=== PATIENT | female | born 1960 | race Caucasian/White ===

== ENCOUNTER 2016-10-26 22:01 | Inpatient (IN) | payer OTHER, BC ==
[~2016-10-26] VITALS: Ht 157.5 cm; Wt 56.7 kg
[~2016-10-26 22:01] MED LIST: ELAVIL10 MG PO; LINZESS145 MCG PO; MINIPRESS1 MG PO; NEURONTIN100 MG PO; NEURONTIN400 MG PO; NEXIUM40 MG PO; STOOL SOFTENER100 MG PO; VITAMIN D32000 UNI1 PO
[2016-10-27 13:10] VITALS: BP 135/75
[2016-10-27 17:52] VITALS: BP 111/66
[2016-10-27 19:42] VITALS: BP 100/66
[2016-10-27 20:10] LABS: HEMATOCRIT 35.6 % (36.0-46.0); MCH 30.1 PG (29.0-34.0); MCHC 33.4 G/DL (30.0-36.0); MCV 90.1 FL (83-99); MEAN PLAT.VOLUME 9.3 uM^3 (9.5-12.4); PLATELET COUNT 233 K/uL (156-360); RBC DIS.WIDTH-CV 12.9 % (11.8-14.6); RBC DIS.WIDTH-SD 42.8 % (39-53); RED BLOOD COUNT 3.95 M/uL (3.80-5.20); WHITE BLOOD COUNT 12.9 K/uL (4.1-10.2)
[2016-10-27 20:32] LABS: ANION GAP 9 MEQ/L (2-14); CHLORIDE 104 MEQ/L (99-109); POTASSIUM 3.6 MEQ/L (3.7-5.4); SAMPLE HEMOLYSIS CHECK 0; SAMPLE ICTERIC CHECK 0; SAMPLE LIPEMIA CHECK 0; SODIUM 141 MEQ/L (136-147)
[2016-10-27 20:37] LABS: GFR ESTIMATE (CALCULATED) > 59 mL/min/; GLUCOSE 212 mg/dL (70-99); UREA NITROGEN (BUN) 8 mg/dL (9-23)
[2016-10-27 23:32] VITALS: BP 112/76
[2016-10-28 04:12] VITALS: BP 100/54
[2016-10-28 06:46] LABS: HEMATOCRIT 32.9 % (36.0-46.0); MCH 29.3 PG (29.0-34.0); MCHC 32.2 G/DL (30.0-36.0); MCV 90.9 FL (83-99); MEAN PLAT.VOLUME 9.4 uM^3 (9.5-12.4); PLATELET COUNT 210 K/uL (156-360); RBC DIS.WIDTH-CV 13.1 % (11.8-14.6); RBC DIS.WIDTH-SD 43.8 % (39-53); RED BLOOD COUNT 3.62 M/uL (3.80-5.20); WHITE BLOOD COUNT 9.1 K/uL (4.1-10.2)
[2016-10-28 07:07] LABS: ANION GAP 8 MEQ/L (2-14); CHLORIDE 98 MEQ/L (99-109); GFR ESTIMATE (CALCULATED) > 59 mL/min/; GLUCOSE 125 mg/dL (70-99); SAMPLE HEMOLYSIS CHECK 0; SAMPLE ICTERIC CHECK 0; SAMPLE LIPEMIA CHECK 0; SODIUM 135 MEQ/L (136-147); UREA NITROGEN (BUN) 7 mg/dL (9-23)
[2016-10-28 07:08] VITALS: BP 110/56
[2016-10-28 11:15] VITALS: BP 95/53
[2016-10-28 14:40] VITALS: BP 90/55
[2016-10-28 19:26] VITALS: BP 90/51
[2016-10-28 23:41] VITALS: BP 92/54
[2016-10-29 00:11] VITALS: BP 86/53
[2016-10-29 00:30] VITALS: BP 90/52
[2016-10-29 02:46] VITALS: BP 92/47
[2016-10-29 03:53] VITALS: BP 91/52
[2016-10-29 07:04] LABS: HEMATOCRIT 28.8 % (36.0-46.0); MCH 30.6 PG (29.0-34.0); MCHC 33.3 G/DL (30.0-36.0); MCV 91.7 FL (83-99); MEAN PLAT.VOLUME 9.7 uM^3 (9.5-12.4); PLATELET COUNT 182 K/uL (156-360); RBC DIS.WIDTH-CV 13.5 % (11.8-14.6); RBC DIS.WIDTH-SD 45.8 % (39-53); RED BLOOD COUNT 3.14 M/uL (3.80-5.20); WHITE BLOOD COUNT 5.2 K/uL (4.1-10.2)
[2016-10-29 07:17] VITALS: BP 86/52
[2016-10-29 07:35] LABS: ANION GAP 4 MEQ/L (2-14); CHLORIDE 104 MEQ/L (99-109); GFR ESTIMATE (CALCULATED) > 59 mL/min/; POTASSIUM 4.3 MEQ/L (3.7-5.4); SAMPLE HEMOLYSIS CHECK 0; SAMPLE ICTERIC CHECK 0; SAMPLE LIPEMIA CHECK 0; SODIUM 141 MEQ/L (136-147); UREA NITROGEN (BUN) 10 mg/dL (9-23)
[2016-10-29 07:36] LABS: GLUCOSE 78 mg/dL (70-99)
[2016-10-29] MEDS ORDERED: TRAMADOL HCL50 MG PO (10:05)
[2016-10-29 11:23] VITALS: BP 100/56
== END 2016-10-29 11:39 | disposition home or self-care (01) | DRG 750 ==
LOC: ENRESERV 22:01 → 2SOUTH 10-27 09:57 → 2EAST 10-27 12:38 → 2SOUTH 10-27 14:21 → ENRESERV 10-27 15:18 → 2SOUTH 10-27 16:07 → 2EAST 10-27 17:45
PROVIDERS: Obstetrics & Gynecology Gynecologic Oncology
DX: N99.83 Residual ovary syndrome (principal); N13.5 Crossing vessel and stricture of ureter without hydronephrosis; L29.9 Pruritus, unspecified; Z90.710 Acquired absence of both cervix and uterus; Z87.11 Personal history of peptic ulcer disease; M79.7 Fibromyalgia; R19.00 Intra-abdominal and pelvic swelling, mass and lump, unspecified site
CPT/HCPCS: 36415; 80048; 85027; 86900; 86901; 86920; 88305; 94799; C1758; J0690; J1100; J1200; J1650; J1885; J2250; J2405; J2765; J3010